=== PATIENT | male | born 2000 | race Caucasian/White ===

== ENCOUNTER 2025-08-03 08:57 | Emergency (ER) | payer BC ==
[2025-08-03 10:10] LABS: #Basophils Less than 0.03 10x3/uL (0.0-0.2); #Eosinophils 0.10 10x3/uL (0.0-0.5); #Monocytes 0.40 10x3/uL (0.0-1.1); #Neutrophils 2.42 10x3/uL (1.5-8.4); %Basophils 0.5 % (0.0-2.0); %Eosinophils 2.4 % (0.0-6.0); %Lymphocytes 29.4 % (18.0-47.0); %Monocytes 9.6 % (0.0-10.0); %Neutrophils 57.9 % (40.0-75.0); Hematocrit 46.9 % (38.8-50.0); Hemoglobin 16.4 g/dL (13.5-17.5); Mean Corpuscular Hemoglobin 31.7 pg (27.0-33.0); Mean Corpuscular Volume 90.7 fL (81.2-95.1); Platelet Count 179 10x3/uL (150-450); Red Blood Cell (RBC) Count 5.17 10x6/uL (4.32-5.72); White Blood Cell (WBC) Count 4.18 10x3/uL (3.5-10.5)
[2025-08-03 10:20] LABS: D-Dimer Test Less than 0.19 mcg/mL (0.19-0.50); INR-International Normal Ratio 1.0; PTT 27.1 sec (22.0-33.0); Prothrombin Time 11.4 sec (9.5-12.1)
[2025-08-03 10:28] LABS: Glucose, Urine (Dipstick) Negative (Negative); Leukocyte Negative (Negative); Protein, Urine (Dipstick) Negative (Neg-Trace); Specific Gravity, Urine 1.010 (1.005-1.030)
[2025-08-03 10:28] LABS: Troponin I Less than 0.010 ng/mL (< 0.028)
[2025-08-03 10:34] LABS: Cocaine Metabolite Screen Negative (Negative); THC/Cannabinoid Screen Negative (Negative); Tricyclic Screen Negative (Negative)
[2025-08-03 10:41] LABS: ALT (SGPT) 30 U/L (Less than 45); AST (SGOT) 23 U/L (11-34); Albumin 4.7 g/dL (3.1-4.5); Alkaline Phosphatase 52 U/L (40-110); Anion Gap 13 mmol/L (10-20); BUN (Urea Nitrogen) 12 mg/dL (8.9-20.6); Bilirubin, Total 0.7 mg/dL (0.3-1.2); CK (CPK) 120 U/L (30-200); Calc. Creatinine Clearance 0 mL/min (70-130); Calcium 9.9 mg/dL (7.8-10.44); Carbon Dioxide 30 mmol/L (22-29); Chloride 103 mmol/L (98-107); Globulin 2.6 g/dL (2.4-3.5); Glucose 87 mg/dL (70-105); Potassium 4.4 mmol/L (3.5-5.1); Sodium 142 mmol/L (136-145)
[2025-08-03 11:00] LABS: Bacteria/HPF None Seen HPF (None Seen); CAUTI Indications for Culture Pelvic or flank pain; RBC/HPF None Seen HPF (0-3); WBC/HPF None Seen HPF (0-3)
[2025-08-03 11:01] LABS: Urine Culture Reflex No No
[2025-08-03 11:04] LABS: Acetaminophen Less than 10 mcg/mL (Less than 10); Lipase 69 U/L (8-78); Magnesium 1.9 mg/dL (1.6-2.6); Salicylate Less than 8.0 mg/dL (Less than 8.0)
== END 2025-08-03 11:14 | disposition home or self-care (01) ==
LOC: CSHERS 08:57
DX: K22.2 Esophageal obstruction (principal); R42 Dizziness and giddiness; R29.700 NIHSS score 0; F17.290 Nicotine dependence, other tobacco product, uncomplicated
CPT/HCPCS: 70450; 71045; 80053; 80306; 80307; 81001; 82550; 83690; 83735; 84484; 85025; 85379; 85610; 85730; 93005; 94760

== ENCOUNTER 2025-08-10 13:11 | Outpatient (CLI) | payer BC | END 2025-08-10 13:12 | disposition home or self-care (01) | LOC: CSHMRI 13:11 | DX: G93.0 Cerebral cysts (principal) | CPT/HCPCS: 70553 ==